=== PATIENT | male | born 1975 | race Hispanic/Latino ===

== ENCOUNTER 2024-08-08 08:30 | Inpatient (IN) | payer BC ==
[~2024-08-08] VITALS: Ht 170.2 cm; Wt 114.2 kg
[2024-08-08 09:27] LABS: BASOPHILS # (AUTO) 0.03 K/uL (0.00-0.20); BASOPHILS % (AUTO) 0.4 % (0.0-5.0); EOSINOPHILS # (AUTO) 0.24 K/uL (0.00-0.70); HEMATOCRIT 40.9 % (42-54); IMMATURE GRANULOCYTE ABSOLUTE 0.01 K/uL (0-1); LYMPHOCYTES # (AUTO) 2.6 K/uL (1.0-4.8); LYMPHOCYTES % (AUTO) 32.4 % (21.0-51.0); MEAN CORPUSCULAR HEMOGLOBIN 27.1 pg (27.0-33.0); MEAN CORPUSCULAR VOLUME 79.9 fL (79-99); MONOCYTES # (AUTO) 0.8 K/uL (0.1-1.0); MONOCYTES % (AUTO) 9.4 % (3.0-13.0); NEUTROPHILS # (AUTO) 4.4 K/uL (1.8-7.7); NEUTROPHILS % (AUTO) 54.7 % (40.0-77.0); PLATELET COUNT (AUTO) 291 K/uL (130-400); RED BLOOD CELL COUNT(AUTO) 5.12 MIL/uL (4.50-6.20); RED CELL DISTRIBUTION WIDTH 12.8 % (11.0-15.5); WHITE BLOOD COUNT (AUTO) 8.1 K/uL (4.8-10.8)
--- NOTE | 2024-08-08 09:31 | HMCIMG ---
CT HEAD/BRAIN W/O CONTRAST HISTORY: Headaches COMPARISON: None TECHNIQUE: Multiple sequential axial images of the head were obtained from the base of the skull through vertex. Patient was not given contrast through intravenous route. FINDINGS: The ventricles and extraventricular CSF spaces are nondilated for patient's age. There is no midline shift, mass effect or herniation. No acute intracranial bleed is seen. Visualized portion of the paranasal sinuses are grossly within normal limits. IMPRESSION: 1. No acute intracranial bleed is seen. CT was performed with one or more following dose reduction techniques: automated exposure control, adjustment of the mA and kv according to patient's size, or use of a iterative reconstruction technique.
[2024-08-08 09:35] LABS: POTASSIUM 3.6 mmol/L (3.5-5.1)
[2024-08-08] MEDS: LAbetaLOL 20MG SYG IV ONE (09:47)
[2024-08-08 09:49] LABS: INR 0.95 (0.85-1.15); PROTHROMBIN TIME 10.3 SEC (9.6-11.6)
[2024-08-08 09:51] LABS: PARTIAL THROMBOPLASTIN TIME 26.8 SEC (26.3-35.5)
--- NOTE | 2024-08-08 10:05 | EKG ---
[facility] [place] Test Date: 2024-08-08 Test Time: 09:51:18 Pat Name: NORA MONTELONGO Department: [facility] Room: 412 Gender: M [employer] Operator: opal : 1975 Requested By: ORLIN WESTBROOK Order Number: [id number] Reading MD: Martínez Diana Measurements Intervals [place] Rate: 76 P: 34 [place]: 174 QRS: -23 QRSD: 101 T: 125 QT: 391 QTc: 439 Interpretive Statements Sinus rhythm LVH with secondary repolarization abnormality Anterior ST elevation, probably due to LVH No previous ECG available for comparison Electronically Signed On 08-11-2024 13:09:05 [employer]NER [facility] by Martínez Diana Please click the below link to view image of tracing.
--- NOTE | 2024-08-08 11:49 | ERN ---
General Chief Complaint: Eye Problems Stated Complaint: RT EYE PROBLEM Time Seen by MD: 08:39 History of Present Illness Initial Comments 49-year-old male came in for blurry vision from his right eye. Patient states that he has not followed up with physician in a long time and does not know if he has any underlying medical problems. Upon arrival patient had a blood pressure of 225 systolic. Patient denies pain to his I but has noticed some blurry vision which has been going on for the past few days. Patient denies weakness in upper and lower extremities. Patient does state that since onset his vision has improved. Patient otherwise has no concerns. Allergies: Coded Allergies: No Known Allergies (Unverified Allergy, Unknown, 08/08/24) Past Medical History Past Medical History: No Pertinent History Past Surgical History: None Surgical History Other: BILATERAL LASIK EYE SX ROS Dictation Blurry vision Physical Exam Physical Exam Dictation Vital Signs reviewed General Appearance: Alert, oriented x 3, no acute distress, well developed, nourished. Head and Face: non-traumatic. Eyes: PERRL, pink conjunctivas, eyelid no trauma, anterior chamber with arcus senilis. Ears: Pinnas intact and no signs of trauma or erythema ear canals clear and no d ischarge TM no erythema Nose: No discharge, no bleeding. Oropharynx: Mouth normal, tongue pink, pharynx clear,no erythema, tonsils no exudates, no abscesses noted, mucous membrane moist Neck: Supple, non-tender, no thyromegaly, no masses, no JVD, no bruits Breast:Deferred Chest:No tenderness, no crepitus, no paradoxical movement, no retractions Lungs:Clear, well-ventilated, symmetric, no rales, no wheezing, no rhonchi, no stridor, good breath sounds bilaterally Heart: Regular rate, regular rhythm, no murmur, no gallops Vascular: no peripheral edema, Abdomen: Soft, positive bowel sounds, nondistended, no guarding, nontender, no rebound, no masses no hepatomegaly, no splenomegaly, no Paige's sign, no hernias. Rectal: Deferred Genital: Deferred Neurological: Normal speech, motor function intact, sensory function intact Musculoskeletal: Neck nontender, full range of motion, back nontender, full range of motion, Extremities: nontender, full range of motion Skin: Color pink, dry, no turgor, no rash, no lacerations, no abrasions, no contusions. Lymphatic: Deferred Results Laboratory and Microbiology Lab and Micro Result Laboratory Tests Test 08/08/24 09:01 White Blood Count 8.1 K/uL (4.8-10.8) Red Blood Count 5.12 MIL/uL (4.50-6.20) Hemoglobin 13.9 g/dL (14.0-18.0) L Hematocrit 40.9 % (42-54) L Mean Corpuscular Volume 79.9 fL (79-99) Mean Corpuscular Hemoglobin 27.1 pg (27.0-33.0) Mean Corpuscular Hemoglobin Concent 34.0 g/dL (32.0-36.0) Red Cell Distribution Width 12.8 % (11.0-15.5) Platelet Count 291 K/uL (130-400) Mean Platelet Volume 10.8 fL (7.5-10.5) H Immature Granulocyte % (Auto) 0.1 % (0-1) Neutrophils (%) (Auto) 54.7 % (40.0-77.0) Lymphocytes (%) (Auto) 32.4 % (21.0-51.0) Monocytes (%) (Auto) 9.4 % (3.0-13.0) Eosinophils (%) (Auto) 3.0 % (0.0-8.0) Basophils (%) (Auto) 0.4 % (0.0-5.0) Neutrophils # (Auto) 4.4 K/uL (1.8-7.7) Lymphocytes # (Auto) 2.6 K/uL (1.0-4.8) Monocytes # (Auto) 0.8 K/uL (0.1-1.0) Eosinophils # (Auto) 0.24 K/uL (0.00-0.70) Basophils # (Auto) 0.03 K/uL (0.00-0.20) Absolute Immature Granulocyte (auto 0.01 K/uL (0-1) Nucleated Red Blood Cells 0.0 % (0.0-0.19) Prothrombin Time 10.3 SEC (9.6-11.6) Prothromb Time International Ratio 0.95 (0.85-1.15) Activated Partial Thromboplast Time 26.8 SEC (26.3-35.5) Sodium Level 135 mmol/L (136-145) L Potassium Level 3.6 mmol/L (3.5-5.1) Chloride Level 99 mmol/L (101-111) L Carbon Dioxide Level 30 mmol/L (21-32) Blood Urea Nitrogen 14 mg/dL (7-18) Creatinine 1.0 mg/dL (0.5-1.3) Glomerular Filtration Rate Calc 91 mL/min (>90) Random Glucose 200 mg/dL (70-105) H Total Calcium 8.7 mg/dL (8.5-10.1) Troponin I High Sensitivity 20 ng/L (4-75) MDM MDM: Differential diagnosis: Rationale: Tests considered and ordered secondary to shared decision making include: Previous outside records reviewed: Old ER visits. Risk of complication and/or morbidity or mortality of patient management: None Medications-Per medication reconciliation Need for hospitalization: Patient does meet criteria for hospitalization. Need for emergency major/minor surgery: No There are no social concerns with this patient. Prescription drug management Prescriptions will include symptomatic care Patient's prior external medical records from other ER visits were reviewed by me as indicated. Prior testing and results from previous visits were reviewed. Prior tests were taken into account with medical decision making and resource utilization, independent historian/historians were used to obtain complete medical history. I independently interpreted the test that were performed, results were reviewed by me and considered findings on radiology if ordered. Medical management and examination interpretation discussions were had by me with other qualified healthcare professionals as indicated for the patient's care. After treatment of hypertensive urgency patient can follow up with [facility] ophthalmology clinic. ED Course Orders Procedure Category Date Status Time Cbc With Differential LAB 08/08/24 Complete 08:52 Basic Metabolic Panel LAB 08/08/24 Complete 08:52 Pt And Ptt LAB 08/08/24 Complete 08:52 Ct Head/Brain W/O CT 08/08/24 Resulted Contrast 08:52 Labetalol 20mg Syg PHA 08/08/24 Complete (Trandate 20mg Syg) 10:00 12 Lead Ekg Tracing- EKG 08/08/24 Complete Technical 09:40 Troponin I High LAB 08/08/24 Complete Sensitivity 09:40 Current Medications Medications (Trade) Dose Ordered Sig/Joseph Route PRN Reason Start Time Stop Time Status Last Admin Dose Admin Labetalol HCl (TRANdate 20MG SYG) 10 mg ONCE ONCE IV 08/08/24 10:00 08/08/24 10:01 DC 08/08/24 09:47 Vital Signs Date Time Temp Pulse Resp B/P (MAP) Pulse Ox O2 Delivery O2 Flow Rate FiO2 08/08/24 11:13 97.7 73 18 169/95 99 Room Air* 0 21 08/08/24 10:34 97.7 74 18 176/99 99 Room Air* 0 08/08/24 09:47 218/119 08/08/24 09:47 72 18 213/119 98 Room Air* 0 08/08/24 08:36 97.7 74 20 227/119 99 Room Air DX & DISP Disposition: Inpatient Decision to Admit Date: Aug 08, 2024 Decision to Admit Time: 11:49 Departure Impression: Primary Impression: Hypertensive urgency Condition: Stable Referrals: SELF,REFERRAL (PCP) ORLIN WESTBROOK MD Aug 08, 2024 11:49
--- NOTE | 2024-08-08 12:18 | HP ---
[facility] PH[facility] Date of Service: Aug 08, 2024 Time of Service: 12:18 HISTORY OF PRESENT ILLNESS: Date of Service: 08/08/2024 49-year-old male with no significant past medical history who presented to the hospital secondary to elevated blood pressure in the right eye blurry vision. Patient states for the past three days he has noted blurry vision in the right eye. He has issues with peripheral vision but is able to somewhat see centrally. He does not have any problems with the left eye. Denied any eye pain, swelling, pain with movement of the high. He denied any upper or lower extremity weakness, paresthesias, falls, syncopal episode. Patient does not see a primary care provider and does not take any medications at home. Additionally he has not had any regular lab work done. He does not check his blood pressure at home. He states otherwise he is very active and denies any chest pain at rest or with exertion. Denied any fever, chills, shortness of breath, abdominal pain, nausea, vomiting. Labs in the ED were notable for white count of 8.1, hemoglobin was 13.9, platelet count was 291k, sodium was 135, potassium was 3.6, creatinine was 1.0, blood glucose head which was negative. On presentation to the ED patient's blood pressure was noted to be 227/119. The patient received IV labetalol 10 mg which decreased his blood pressure to 176/99. When seen at bedside patient's systolic blood pressure was noted to be in the 140's/ and diastolic pressure was noted to be under 100s. Patient currently denied any chest pain when seen at bedside. CT Head was negative for any acute findings in the ED The provider spoke to [facility] with ophthalmology regarding right eye blurry vision. [employer] Straightener recommended outpatient follow up once blood pressure is optimized. REVIEW OF SYSTEMS CONSTITUTIONAL: Denies fevers, chills, or night sweats. No unintentional weight loss reported. NEUROLOGICAL: Denies headache, amaurosis fugax, motor weakness, sensory deficit, vertigo/spinning sensation, gait abnormalities, or tremors. EYE : Positive for blurry vision in the right eye ENT: No hearing loss, otalgia, otorrhea, rhinitis, rhinorrhea, hoarseness, or sore throat. CARDIOVASCULAR: Denies any exertional angina, dyspnea on exertion, orthopnea, paroxysmal nocturnal dyspnea, palpitations, life-threatening arrhythmias, claudication. PULMONARY: Denies any shortness of breath, cough, phlegm/sputum, hemoptysis, pleuritic chest pain. SLEEP: Denies morning headaches, daytime somnolence or napping. Denies difficulty falling asleep, staying asleep, waking from sleep. Denies knowledge of snoring. GASTROINTESTINAL: Denies any type of dysphagia to either liquids or solids. Denies nausea, vomiting, pyrosis, early satiety, abdominal pain, diarrhea, constipation, or changes in stool consistency or caliber. Denies coffee-ground emesis, hematemesis, hematochezia, or melanotic stools. GENITOURINARY: Denies frequency, urgency, nocturia, hematuria or incontinence (Storage/Irritative symptoms.) Low urinary stream, straining to void, urinary intermittency or hesitancy, splitting of the voiding stream, terminal dribbling. ENDOCRINOLOGIC: Denies polyuria, polydipsia, polyphagia or heat/cold intolerances. HEMATOLOGIC: Denies thrombophilia/previous clots, or coagulopathy/bleeding disorders. ONCOLOGIC: Denies personal history of malignancy. DERMATOLOGIC: Denies rashes or pruritus. PSYCHIATRIC: Denies any suicidal or homicidal ideation. Denies hallucinations. PAST MEDICAL HISTORY: No Significant past medical history PAST SURGICAL HISTORY: Denied any surgical history PAST SOCIAL HISTORY: Denied smoking. Drinks alcohol occasionally. Denied any drug use FAMILY HISTORY: Denied any pertinent family history Coded Allergies: No Known Allergies (Unverified Allergy, Unknown, 08/08/24) PHYSICAL EXAM GENERAL APPEARANCE: The patient is awake, alert, and oriented, in no acute c ardiopulmonary distress. NEUROLOGICAL: Cranial nerves II-XII grossly intact. Motor is 5/5 in bilateral upper and lower extremities proximal to distal. No sensory deficits. HEENT: Face is symmetric. Pupils are equal and reactive. Extraocular movements are intact. He has conjunctival redness in the right eye. Eye movement is intact. Visual field is intact in the left eye. Patient has a loss of peripheral vision in the right eye. He does see somewhat from the central vision from the right eye.. Nursing performed visual acuity. His visual acuity in the left eye was 20/40. Was not able to he was not able to visualize well with the right eye. NECK: Supple. No JVD. No thyromegaly. No submental, submandibular, pre- /postauricular, occipital or supraclavicular lymphadenopathy. CHEST: Normal chest expansion. No Telemetry. LUNGS: Absence of any rales, rhonchi or any wheezing. CARDIOVASCULAR: Regular. S1 and S2 normal. No appreciable rubs, murmurs or gallops. ABDOMEN: Soft, nontender, and nondistended. There is no rebound, voluntary guarding, or rigidity. : Deferred. No [place]. EXTREMITIES: Non-edematous and not cyanotic. No clubbing. Good capillary refill. SKIN: No skin breakdown. Vital Sign (Last 24 Hours) 08/08/24 12:12 Temp 97.7 Pulse 73 Resp 18 B/P (MAP) 148/100 Pulse Ox 99 O2 Delivery Room Air* O2 Flow Rate 0 FiO2 21 LABS: Laboratory: Test 08/08/24 09:01 Range/Units White Blood Count 8.1 4.8-10.8 K/uL Red Blood Count 5.12 4.50-6.20 MIL/uL Hemoglobin 13.9 L 14.0-18.0 g/dL Hematocrit 40.9 L 42-54 % Mean Corpuscular Volume 79.9 79-99 fL Mean Corpuscular Hemoglobin 27.1 27.0-33.0 pg Mean Corpuscular Hemoglobin Concent 34.0 32.0-36.0 g/dL Red Cell Distribution Width 12.8 11.0-15.5 % Platelet Count 291 130-400 K/uL Mean Platelet Volume 10.8 H 7.5-10.5 fL Immature Granulocyte % (Auto) 0.1 0-1 % Neutrophils (%) (Auto) 54.7 40.0-77.0 % Lymphocytes (%) (Auto) 32.4 21.0-51.0 % Monocytes (%) (Auto) 9.4 3.0-13.0 % Eosinophils (%) (Auto) 3.0 0.0-8.0 % Basophils (%) (Auto) 0.4 0.0-5.0 % Neutrophils # (Auto) 4.4 1.8-7.7 K/uL Lymphocytes # (Auto) 2.6 1.0-4.8 K/uL Monocytes # (Auto) 0.8 0.1-1.0 K/uL Eosinophils # (Auto) 0.24 0.00-0.70 K/uL Basophils # (Auto) 0.03 0.00-0.20 K/uL Absolute Immature Granulocyte (auto 0.01 0-1 K/uL Nucleated Red Blood Cells 0.0 0.0-0.19 % Prothrombin Time 10.3 9.6-11.6 SEC Prothromb Time International Ratio 0.95 0.85-1.15 Activated Partial Thromboplast Time 26.8 26.3-35.5 SEC Sodium Level 135 L 136-145 mmol/L Potassium Level 3.6 3.5-5.1 mmol/L Chloride Level 99 L 101-111 mmol/L Carbon Dioxide Level 30 21-32 mmol/L Blood Urea Nitrogen 14 7-18 mg/dL Creatinine 1.0 0.5-1.3 mg/dL Glomerular Filtration Rate Calc 91 >90 mL/min Random Glucose 200 H 70-105 mg/dL Total Calcium 8.7 8.5-10.1 mg/dL Troponin I High Sensitivity 20 4-75 ng/L DIAGNOSTICS / RADIOLOGY: Reviewed ASSESSMENT: Hypertensive urgency POA Right eye blurry vision Suspected diabetes mellitus type 2 Obesity BMI 40.1 PLAN: - patient to be admitted to PCCU -in reference to hypertensive urgency. Patient's blood pressure has improved in the systolic 140s. We will start patient on amlodipine and titrate up medication as tolerated. We will closely monitor blood pressure for now. Patient is currently asymptomatic. We will also trend troponins q.6 hours and obtain an echocardiogram. Patient would require follow up with the primary care provider for close monitoring -in reference to right eye blurry vision. [employer]ener recommended outpatient follow up. I also personally spoke with Dr Parham with [facility] who recommended optimization of blood pressure and follow up as outpt with eye once discharged from the hospital. -check TSH, A1c, procalcitonin, CRP -further orders per hospitalization course. Advanced Care Planning Which of the following were discussed: Hospice care: Yes __ No _x_ Therapeutic options: Yes __ No __ Advance directives: Yes __ No __ Other discussions: Pt is full code Discussed with who?: Patient (Patient, family or surrogates) Voluntary nature of this service was explained to the patient? Yes _x_ No __ Amount of time spent: 20 minutes ALVIN Nicholson MD MD Aug 08, 2024 12:18
[2024-08-08] MEDS ORDERED: acetaMINOPHEN 500 MG TABLET PO PRN (12:30)
[2024-08-08] MEDS: amLODIPine 5 MG TAB PO ONE (12:37)
[2024-08-08 13:20] LABS: HEMOGLOBIN A1C 11.1 % (4.0-6.0)
[2024-08-08] MEDS: INSULIN humuLIN R 100 UNIT/ML 3ML SQ SCH (17:04)
[2024-08-08 18:32] LABS: APPEARANCE,URINE CLEAR (CLEAR); BILIRUBIN,URINE NEGATIVE (NEGATIVE); COLOR,URINE LIGHT-YELLOW (YELLOW); GLUCOSE, URINE (UA) >=1000 mg/dL (NEGATIVE); KETONES,URINE NEGATIVE (NEGATIVE); LEUKOCYTE ESTERASE ,URINE NEGATIVE Leu/uL (NEGATIVE); NITRATE,URINE NEGATIVE (NEGATIVE); PH,URINE 5.5 (5.0-8.0); PROTEIN,URINE 20 mg/dL (NEGATIVE); UROBILINOGEN,URINE 0.2 mg/dL (0.2-1.0)
[2024-08-08 18:36] LABS: ADD UA MICROSCOPIC YES
[2024-08-08 18:37] LABS: MUCUS,URINE RARE LPF (None Seen); SQUAMOUS EPITHELIAL CELL,UR RARE /HPF (0-2)
[2024-08-08 19:00] LABS: AMPHET/METH SCREEN,URINE NEGATIVE (NEGATIVE); BARBITURATE SCREEN, URINE NEGATIVE (NEGATIVE); BENZODIAZEPINES SCREEN,URINE NEGATIVE (NEGATIVE); CANNABINOID SCREEN,URINE NEGATIVE (NEGATIVE); COCAINE SCREEN,URINE NEGATIVE (NEGATIVE); OPIATE SCREEN,URINE NEGATIVE (NEGATIVE); PHENCYCLIDINE SCREEN,URINE NEGATIVE (NEGATIVE)
[2024-08-08] MEDS: FAMOTIDINE 20MG VIAL IV SCH (21:00)
[2024-08-08] MEDS: LAbetaLOL 20MG SYG IV PRN (21:01)
[2024-08-08] MEDS: LoSARTan 50 MG TABLET PO SCH (21:47)
[2024-08-08 22:57] VITALS: BP 158/98; PULSE 76; RESP 22; TEMP 98.5
[2024-08-08 23:30] VITALS: O2SAT 99
[2024-08-09] VITALS (9 sets, daily range): BP systolic 121–174; BP diastolic 76–99; PULSE 73–76; RESP 18–22; TEMP 97.7–98.5; O2SAT 99
[2024-08-09] MEDS: hydrALAZine 20MG/ML VIAL IV ONE (05:31)
[2024-08-09 06:16] LABS: BASOPHILS # (AUTO) 0.04 K/uL (0.00-0.20); BASOPHILS % (AUTO) 0.5 % (0.0-5.0); EOSINOPHILS # (AUTO) 0.16 K/uL (0.00-0.70); EOSINOPHILS % (AUTO) 1.9 % (0.0-8.0); HEMATOCRIT 40.4 % (42-54); IMMATURE GRANULOCYTE ABSOLUTE 0.02 K/uL (0-1); LYMPHOCYTES # (AUTO) 2.3 K/uL (1.0-4.8); MEAN CORPUSCULAR HEMOGLOBIN 26.9 pg (27.0-33.0); MEAN CORPUSCULAR HGB CONC 33.2 g/dL (32.0-36.0); MONOCYTES # (AUTO) 0.9 K/uL (0.1-1.0); MONOCYTES % (AUTO) 10.4 % (3.0-13.0); NEUTROPHILS # (AUTO) 5.2 K/uL (1.8-7.7); PLATELET COUNT (AUTO) 287 K/uL (130-400); RED BLOOD CELL COUNT(AUTO) 4.99 MIL/uL (4.50-6.20); RED CELL DISTRIBUTION WIDTH 12.9 % (11.0-15.5); WHITE BLOOD COUNT (AUTO) 8.6 K/uL (4.8-10.8)
[2024-08-09 06:28] LABS: CREATININE 1.1 mg/dL (0.5-1.3); POTASSIUM 3.7 mmol/L (3.5-5.1)
[2024-08-09] MEDS ORDERED: amLODIPine 5 MG TAB PO SCH (09:00)
[2024-08-09] MEDS: amLODIPine 5 MG TAB PO SCH (09:27)
--- NOTE | 2024-08-09 13:09 | PN ---
[facility] PROGRESS NOTE Date of Service: Aug 09, 2024 Time of Service: 13:03 SUBJECTIVE: Follow up visit for a 49-year-old male admitted to the hospital for uncontrolled blood pressure, right eye blurry vision. Patient initiated on p.o. Norvasc, p.o. losartan, SBP improving ranging in the 140s 150s. Patient also a type 2 diabetic not currently on any DM medications, A1c is 11.1%. Patient continues to experience for right eye irritation with some hazy vision. He reports itchiness and a.m. matter to the right eye. REVIEW OF SYSTEMS CONSTITUTIONAL: Denies fevers, chills, or night sweats. No unintentional weight loss reported. NEUROLOGICAL: Denies headache, amaurosis fugax, motor weakness, sensory deficit, vertigo/spinning sensation, gait abnormalities, or tremors. EYE : Positive for blurry vision in the right eye ENT: As mentioned above CARDIOVASCULAR: Denies any exertional angina, dyspnea on exertion, orthopnea, paroxysmal nocturnal dyspnea, palpitations, life-threatening arrhythmias, claudication. PULMONARY: Denies any shortness of breath, cough, phlegm/sputum, hemoptysis, pleuritic chest pain. SLEEP: Denies morning headaches, daytime somnolence or napping. Denies difficulty falling asleep, staying asleep, waking from sleep. Denies knowledge of snoring. GASTROINTESTINAL: Denies any type of dysphagia to either liquids or solids. Denies nausea, vomiting, pyrosis, early satiety, abdominal pain, diarrhea, constipation, or changes in stool consistency or caliber. Denies coffee-ground emesis, hematemesis, hematochezia, or melanotic stools. GENITOURINARY: Denies frequency, urgency, nocturia, hematuria or incontinence (Storage/Irritative symptoms.) Low urinary stream, straining to void, urinary intermittency or hesitancy, splitting of the voiding stream, terminal dribbling. ENDOCRINOLOGIC: Denies polyuria, polydipsia, polyphagia or heat/cold intolerances. HEMATOLOGIC: Denies thrombophilia/previous clots, or coagulopathy/bleeding disorders. ONCOLOGIC: Denies personal history of malignancy. DERMATOLOGIC: Denies rashes or pruritus. PSYCHIATRIC: Denies any suicidal or homicidal ideation. Denies hallucinations. PHYSICAL EXAM GENERAL APPEARANCE: The patient is awake, alert, and oriented, in no acute cardiopulmonary distress. NEUROLOGICAL: Cranial nerves II-XII grossly intact. Motor is 5/5 in bilateral upper and lower extremities proximal to distal. No sensory deficits. HEENT: Face is symmetric. Pupils are equal and reactive. Extraocular movements are intact. He has global conjunctival redness in the right eye. Eye movement is intact. Visual field is intact in the left eye. He does state that his right eye central and peripheral vision is intact however is hazy NECK: Supple. No JVD. No thyromegaly. No submental, submandibular, pre- /postauricular, occipital or supraclavicular lymphadenopathy. CHEST: Normal chest expansion. No Telemetry. LUNGS: Absence of any rales, rhonchi or any wheezing. CARDIOVASCULAR: Regular. S1 and S2 normal. No appreciable rubs, murmurs or gallops. ABDOMEN: Soft, nontender, and nondistended. There is no rebound, voluntary guarding, or rigidity. : Deferred. No Fenton. EXTREMITIES: Non-edematous and not cyanotic. No clubbing. Good capillary refill. SKIN: No skin breakdown. Vital Signs (last 8hr) Date Time Temp Pulse Resp B/P (MAP) Pulse Ox O2 Delivery O2 Flow Rate FiO2 08/09/24 12:00 97.9 73 18 148/96 96 08/09/24 08:00 98.2 75 18 147/93 99 Room Air 08/09/24 06:00 98.2 75 20 144/99 98 Room Air 08/09/24 05:26 174/96 LABS: Laboratory: Test 08/09/24 10:55 08/09/24 05:53 08/08/24 18:18 08/08/24 18:00 Range/Units Whole Blood Glucose 192 H 70-110 MG/DL White Blood Count 8.6 4.8-10.8 K/uL Red Blood Count 4.99 4.50-6.20 MIL/uL Hemoglobin 13.4 L 14.0-18.0 g/dL Hematocrit 40.4 L 42-54 % Mean Corpuscular Volume 81.0 79-99 fL Mean Corpuscular Hemoglobin 26.9 L 27.0-33.0 pg Mean Corpuscular Hemoglobin Concent 33.2 32.0-36.0 g/dL Red Cell Distribution Width 12.9 11.0-15.5 % Platelet Count 287 130-400 K/uL Mean Platelet Volume 10.8 H 7.5-10.5 fL Immature Granulocyte % (Auto) 0.2 0-1 % Neutrophils (%) (Auto) 60.0 40.0-77.0 % Lymphocytes (%) (Auto) 27.0 21.0-51.0 % Monocytes (%) (Auto) 10.4 3.0-13.0 % Eosinophils (%) (Auto) 1.9 0.0-8.0 % Basophils (%) (Auto) 0.5 0.0-5.0 % Neutrophils # (Auto) 5.2 1.8-7.7 K/uL Lymphocytes # (Auto) 2.3 1.0-4.8 K/uL Monocytes # (Auto) 0.9 0.1-1.0 K/uL Eosinophils # (Auto) 0.16 0.00-0.70 K/uL Basophils # (Auto) 0.04 0.00-0.20 K/uL Absolute Immature Granulocyte (auto 0.02 0-1 K/uL Nucleated Red Blood Cells 0.0 0.0-0.19 % Sodium Level 136 136-145 mmol/L Potassium Level 3.7 3.5-5.1 mmol/L Chloride Level 100 L 101-111 mmol/L Carbon Dioxide Level 26 21-32 mmol/L Blood Urea Nitrogen 12 7-18 mg/dL Creatinine 1.1 0.5-1.3 mg/dL Glomerular Filtration Rate Calc 81 >90 mL/min Random Glucose 176 H 70-105 mg/dL Total Calcium 8.7 8.5-10.1 mg/dL Troponin I High Sensitivity 20 4-75 ng/L Urine Color LIGHT-YELLOW YELLOW Urine Appearance CLEAR CLEAR Urine pH 5.5 5.0-8.0 Urine Specific Leopold 1.019 1.001-1.031 Urine Protein 20 H NEGATIVE mg/dL Urine Glucose (UA) >=1000 H NEGATIVE mg/dL Urine Ketones NEGATIVE NEGATIVE mg/dL Urine Occult Blood +- (TRACE) H NEGATIVE Urine Nitrate NEGATIVE NEGATIVE Urine Bilirubin NEGATIVE NEGATIVE mg/dL Urine Urobilinogen 0.2 0.2-1.0 mg/dL Urine Leukocyte Esterase NEGATIVE NEGATIVE Dago/uL Urine RBC 2-5 H 0-1 /HPF Urine WBC 2-5 H 0-1 /HPF Urine Squamous Epithelial Cells RARE 0-2 /HPF Urine Bacteria None None Seen /HPF Urine Hyaline Casts 6-10 H 0-1 /LPF /LPF Urine Opiates Screen NEGATIVE NEGATIVE Urine Barbiturates Screen NEGATIVE NEGATIVE Urine Phencyclidine Screen NEGATIVE NEGATIVE Urine Amphetamines Screen NEGATIVE NEGATIVE Urine Benzodiazepines Screen NEGATIVE NEGATIVE Urine Cocaine Screen NEGATIVE NEGATIVE Urine Marijuana (THC) Screen NEGATIVE NEGATIVE Test 08/08/24 09:01 Range/Units Prothrombin Time 10.3 9.6-11.6 SEC Prothromb Time International Ratio 0.95 0.85-1.15 Activated Partial Thromboplast Time 26.8 26.3-35.5 SEC Hemoglobin A1c 11.1 H 4.0-6.0 % Estimated Average Glucose (eAG) 272 H 70-126 mg/dL C-Reactive Protein, Quantitative 3.10 H 0.5-3.0 mg/L Procalcitonin < 0.05 L 0.05-0.5 ng/mL Thyroid Stimulating Hormone (TSH) 2.00 0.36-3.74 uIU/mL Current Medications Medications (Trade) Dose Ordered Sig/Joseph Route PRN Reason Start Time Stop Time Status Last Admin Dose Admin Acetaminophen (TYLenol 500MG TAB) 500 mg Q6H PRN PO MILD PAIN (1-3) 08/08/24 12:30 09/07/24 12:29 Amlodipine Besylate (NorvASC 5MG TAB) 5 mg DAILY PO 08/09/24 09:00 08/08/24 19:47 DC Amlodipine Besylate (NorvASC 5MG TAB) 10 mg DAILY PO 08/09/24 09:00 09/08/24 08:59 08/09/24 09:27 10 MG Famotidine (Pepcid 20mg Vial) 20 mg BID IV 08/08/24 21:00 09/07/24 20:59 08/09/24 09:28 20 MG Insulin Human Regular (humuLIN R 100 UNIT/ML 3ML) INSULIN SLIDING SCAL... ACHS SQ 08/08/24 16:30 09/07/24 16:29 08/09/24 12:46 2 UNIT Labetalol HCl (TRANdate 20MG SYG) 10 mg Q6H PRN IV for SBP > 180 08/08/24 12:30 09/07/24 12:29 08/08/24 21:01 10 MG Losartan Potassium (CozAAR 50 mg TAB) 50 mg HS PO 08/08/24 21:30 09/07/24 21:29 08/08/24 21:47 50 MG DIAGNOSTICS / RADIOLOGY: [ ] ASSESSMENT: Hypertensive urgency POA Right eye blurry vision Right eye conjunctivitis Uncontrolled diabetes mellitus type 2 Obesity BMI 40.1 PLAN: - continue admission to [facility] -in reference to hypertensive urgency. Patient's blood pressure has improved systolic 140s, 150s. Continue on amlodipine and losartan. We will closely monitor blood pressure for now. Patient is currently asymptomatic. We will obtain an echocardiogram. Patient would require follow up with the primary care provider for close monitoring -in reference to right eye blurry vision. Bacteriology Professor recommended outpatient follow up. Start TobraDex ophthalmic suspension one drop q.4 hours to right eye. -reference to type 2 diabetes, we will initiate patient on metformin 1000 mg p.o. b.i.d., and glipizide 5 mg with breakfast. Continues to monitor blood sugars a.c. and HS. SSI coverage. Hypoglycemic precautions per protocol. A1c is at 11.1%. - follow-up a.m. labs -further orders per hospitalization course. - likely DC home in a.m. BRANDON HERNANDEZ Aug 09, 2024 13:09
[2024-08-09] MEDS: TobRAMYCin/DEXAmethASONE OPTH SUSP 2.5 ML BOT OD SCH (13:30)
[2024-08-09] MEDS: metFORmin HCL 500 MG TAB.SR.24H PO SCH (17:00)
--- NOTE | 2024-08-09 18:06 | HMCSR ---
APPROVED REPORT EXAM: Two-dimensional and M-mode echocardiogram with Doppler and color Doppler. Study Details: HTN INDICATION ICD: uncontrolled hypertension 2D Dimensions RVDd3.9 cmLVEF(%)62.3 (>50%)LVED Vol(simp.)144.0 mL IVSd1.1 (0.7-1.1cm)FS(%)34 %LVES Vol(simp.)49.6 mL LVDd5.3 (3.8-5.6cm)LA (2D)4.8 (1.6-4.0cm)LVEF(%, simp.)66 % PWd1.1 (0.7-1.1cm)Ao Root(2D)3.5 (2.0-3.7cm)LA ESV INDEX (4CH)23.20 mL/m2 IVSs1.4 cmLVOT diam2.0 (1.8-2.4cm)LA ESV INDEX (2CH)22.80 mL/m2 LVDs3.5 (2.5-4.0cm)LA ESV INDEX (BP)23.90 mL/m2 PWs1.4 cm Deformation Strain Apical 418.0 % Apical 215.0 % Apical 317.0 % Global Jttazf10.0 % M-Mode Dimensions EPSS1.4 cm LA (MM)4.8 (1.6-4.0cm) Ao Root(MM)3.7 (2.0-3.7cm) Aortic Valve AoV VTI0.3 mAo Mean GR4.0 mmHgLVOT VTI0.23 m SARAH (VMAX)2.4 cm2AVA (VTI) 2.4 cm2 Mitral Valve MV E Vmax74.7 cm/sDECEL Ftse966 ms MV A Jjui159.7 cm/sP 1/2 T78 ms E/A ratio0.7MVA (PHT)2.8 cm2 TDI E/E' Izezvk33.6E/E' Aujpoix03.2 Medial E' Peak V3.30 cm/sLateral E' Peak V4.10 cm/s Pulmonary Valve PV VTI0.22 mPV Mean GR3 mmHg Left Ventricle The left ventricle is normal size. There is normal left ventricular wall thickness. LVEF is 60-65%. Stage I diastolic dysfunction. Right Ventricle The right ventricle is normal size. The right ventricular systolic function is normal. Atria The left atrium is mildly dilated. The right atrium size is normal. Aortic Valve The aortic valve is normal in structure. Aortic valve is trileaflet. Trivial aortic regurgitation. Th ere is no aortic valvular stenosis. Mitral Valve The mitral valve is normal in structure. There is no evidence of significant mitral regurgitation. Th ere is no mitral valve stenosis. Tricuspid Valve The tricuspid valve is normal in structure. There is no tricuspid valve regurgitation noted. Pulmonic Valve The pulmonary valve is normal in structure. There is no pulmonic valvular regurgitation. Great Vessels The aortic root is normal in size. The ascending aorta is normal in size. The IVC is normal in size a nd collapses >50% with inspiration. Pericardium No pericardial effusion. Conclusion The left ventricle is normal size. LVEF is 60-65%. Stage I diastolic dysfunction. The right ventricle is normal size. The right ventricular systolic function is normal. The left atrium is mildly dilated. The right atrium size is normal. No valvular pathology. No pericardial effusion.
[2024-08-10] VITALS (7 sets, daily range): BP systolic 125–151; BP diastolic 64–100; PULSE 68–72; RESP 18–19; TEMP 97.7–98; O2SAT 99
[2024-08-10 04:55] LABS: POTASSIUM 3.6 mmol/L (3.5-5.1)
[2024-08-10] MEDS: glipiZIDE 5MG TABLET PO SCH (06:49)
[2024-08-10] MEDS ORDERED: nifeDIPine ER 30 MG TAB PO SCH (14:30)
--- NOTE | 2024-08-10 14:40 | PN ---
[facility] PROGRESS NOTE Date of Service: Aug 10, 2024 Time of Service: 14:29 SUBJECTIVE: 08/09 Follow up visit for a 49-year-old male admitted to the hospital for uncontrolled blood pressure, right eye blurry vision. Patient initiated on p.o. Norvasc, p.o. losartan, SBP improving ranging in the 140s 150s. Patient also a type 2 diabetic not currently on any DM medications, A1c is 11.1%. Patient continues to experience for right eye irritation with some hazy vision. He reports itchiness and a.m. matter to the right eye. 08/10 Pt seen at bedside, no acute events overnight. He remains hypertensive, will increase losartan to 50mg BID, start nifedipine 30mg BID and follow up tomorrow. If BP better controlled, will be good candidate for discharge. Pt was started on metformin and glipizide, however this is contraindicated in inpatient as PO diabetes medications are associate with increased incidence of hypoglycemic events, will discontinue at this time and continue with sliding scale. Remainder of his labs and vitals are relatively unremarkable. REVIEW OF SYSTEMS 12 point ROS negative unless noted in HPI PHYSICAL EXAM GENERAL APPEARANCE: The patient is awake, alert, and oriented, in no acute cardiopulmonary distress. NEUROLOGICAL: Cranial nerves II-XII grossly intact. Motor is 5/5 in bilateral upper and lower extremities proximal to distal. No sensory deficits. HEENT: Face is symmetric. Pupils are equal and reactive. Extraocular movements are intact. He has global conjunctival redness in the right eye. Eye movement is intact. Visual field is intact in the left eye. He does state that his right eye central and peripheral vision is intact however is hazy NECK: Supple. No JVD. No thyromegaly. No submental, submandibular, pre- /postauricular, occipital or supraclavicular lymphadenopathy. CHEST: Normal chest expansion. No Telemetry. LUNGS: Absence of any rales, rhonchi or any wheezing. CARDIOVASCULAR: Regular. S1 and S2 normal. No appreciable rubs, murmurs or gallops. ABDOMEN: Soft, nontender, and nondistended. There is no rebound, voluntary guarding, or rigidity. : Deferred. No Fenton. EXTREMITIES: Non-edematous and not cyanotic. No clubbing. Good capillary refill. SKIN: No skin breakdown. Vital Signs (last 8hr) Date Time Temp Pulse Resp B/P (MAP) Pulse Ox O2 Delivery O2 Flow Rate FiO2 08/10/24 12:00 97.9 68 18 151/94 94 08/10/24 08:00 98.1 68 18 149/100 96 LABS: Laboratory: Test 08/10/24 11:14 08/10/24 04:39 08/09/24 05:53 08/08/24 18:18 Range/Units Whole Blood Glucose 119 H 70-110 MG/DL Sodium Level 137 136-145 mmol/L Potassium Level 3.6 3.5-5.1 mmol/L Chloride Level 102 101-111 mmol/L Carbon Dioxide Level 27 21-32 mmol/L Blood Urea Nitrogen 12 7-18 mg/dL Creatinine 1.0 0.5-1.3 mg/dL Glomerular Filtration Rate Calc 91 >90 mL/min Random Glucose 162 H 70-105 mg/dL Total Calcium 8.7 8.5-10.1 mg/dL White Blood Count 8.6 4.8-10.8 K/uL Red Blood Count 4.99 4.50-6.20 MIL/uL Hemoglobin 13.4 L 14.0-18.0 g/dL Hematocrit 40.4 L 42-54 % Mean Corpuscular Volume 81.0 79-99 fL Mean Corpuscular Hemoglobin 26.9 L 27.0-33.0 pg Mean Corpuscular Hemoglobin Concent 33.2 32.0-36.0 g/dL Red Cell Distribution Width 12.9 11.0-15.5 % Platelet Count 287 130-400 K/uL Mean Platelet Volume 10.8 H 7.5-10.5 fL Immature Granulocyte % (Auto) 0.2 0-1 % Neutrophils (%) (Auto) 60.0 40.0-77.0 % Lymphocytes (%) (Auto) 27.0 21.0-51.0 % Monocytes (%) (Auto) 10.4 3.0-13.0 % Eosinophils (%) (Auto) 1.9 0.0-8.0 % Basophils (%) (Auto) 0.5 0.0-5.0 % Neutrophils # (Auto) 5.2 1.8-7.7 K/uL Lymphocytes # (Auto) 2.3 1.0-4.8 K/uL Monocytes # (Auto) 0.9 0.1-1.0 K/uL Eosinophils # (Auto) 0.16 0.00-0.70 K/uL Basophils # (Auto) 0.04 0.00-0.20 K/uL Absolute Immature Granulocyte (auto 0.02 0-1 K/uL Nucleated Red Blood Cells 0.0 0.0-0.19 % Troponin I High Sensitivity 20 4-75 ng/L Test 08/08/24 18:00 Range/Units Urine Color LIGHT-YELLOW YELLOW Urine Appearance CLEAR CLEAR Urine pH 5.5 5.0-8.0 Urine Specific Wells 1.019 1.001-1.031 Urine Protein 20 H NEGATIVE mg/dL Urine Glucose (UA) >=1000 H NEGATIVE mg/dL Urine Ketones NEGATIVE NEGATIVE mg/dL Urine Occult Blood +- (TRACE) H NEGATIVE Urine Nitrate NEGATIVE NEGATIVE Urine Bilirubin NEGATIVE NEGATIVE mg/dL Urine Urobilinogen 0.2 0.2-1.0 mg/dL Urine Leukocyte Esterase NEGATIVE NEGATIVE Dago/uL Urine RBC 2-5 H 0-1 /HPF Urine WBC 2-5 H 0-1 /HPF Urine Squamous Epithelial Cells RARE 0-2 /HPF Urine Bacteria None None Seen /HPF Urine Hyaline Casts 6-10 H 0-1 /LPF /LPF Urine Opiates Screen NEGATIVE NEGATIVE Urine Barbiturates Screen NEGATIVE NEGATIVE Urine Phencyclidine Screen NEGATIVE NEGATIVE Urine Amphetamines Screen NEGATIVE NEGATIVE Urine Benzodiazepines Screen NEGATIVE NEGATIVE Urine Cocaine Screen NEGATIVE NEGATIVE Urine Marijuana (THC) Screen NEGATIVE NEGATIVE Current Medications Medications (Trade) Dose Ordered Sig/Joseph Route PRN Reason Start Time Stop Time Status Last Admin Dose Admin Acetaminophen (TYLenol 500MG TAB) 500 mg Q6H PRN PO MILD PAIN (1-3) 08/08/24 12:30 09/07/24 12:29 Amlodipine Besylate (NorvASC 5MG TAB) 5 mg DAILY PO 08/09/24 09:00 08/08/24 19:47 DC Amlodipine Besylate (NorvASC 5MG TAB) 10 mg DAILY PO 08/09/24 09:00 09/08/24 08:59 08/10/24 09:31 10 MG Famotidine (Pepcid 20mg Vial) 20 mg BID IV 08/08/24 21:00 09/07/24 20:59 08/10/24 09:31 20 MG Glipizide (GLUCOtrol 5MG TABLET) 5 mg ACBKFST PO 08/10/24 07:30 08/10/24 14:26 DC 08/10/24 06:49 5 MG Insulin Human Regular (humuLIN R 100 UNIT/ML 3ML) INSULIN SLIDING SCAL... ACHS SQ 08/08/24 16:30 09/07/24 16:29 08/09/24 21:09 3 UNIT Labetalol HCl (TRANdate 20MG SYG) 10 mg Q6H PRN IV for SBP > 180 08/08/24 12:30 09/07/24 12:29 08/08/24 21:01 10 MG Losartan Potassium (CozAAR 50 mg TAB) 50 mg HS PO 08/08/24 21:30 09/07/24 21:29 08/09/24 21:05 50 MG Metformin HCl (glucoPHAGE XR) 1,000 mg BIDMEALS PO 08/09/24 17:00 08/10/24 14:26 DC 08/10/24 09:31 1,000 MG Tobramycin/ Dexamethasone (TobraDEX EYE DROPS) 1 DROP Q4H OD 08/09/24 13:30 09/08/24 13:29 08/10/24 09:32 1 DROP DIAGNOSTICS / RADIOLOGY: [ ] ASSESSMENT: Hypertensive urgency, improving POA Right eye blurry vision Right eye conjunctivitis Uncontrolled diabetes mellitus type 2 last A1C 11.1 Obesity BMI 40.1 PLAN: - Increase losartan to 50mg BID - Start nifedipine 30mg BID - Start hydrochlorothiazide 25mg q24h - in reference to right eye blurry vision. Beam Carrier Hauler Pusher recommended outpatient follow up. Start TobraDex ophthalmic suspension one drop q.4 hours to right eye. - Discontinue metformin and glipizide, contraindicated on inpatient service - Continue sliding scale insulin and hypoglycemia protocol. Disposition: Pending blood pressure control, possible DC in 24-72 hours SHI HANSON MD Aug 10, 2024 14:39
[2024-08-10] MEDS ORDERED: GLUCAGON 1MG KIT 1 MG ML IM PRN (15:00)
[2024-08-10] MEDS ORDERED: DEXTROSE 50%-WATER 50 ML DISP.SYRIN IV PRN (15:00)
[2024-08-10] MEDS ORDERED: PoTASSium chloRIDE 10MEQ/100ML 100 ML IV PRN (15:00)
[2024-08-10] MEDS ORDERED: MAGNESIUM 2GM PREMIX 50ML 50 ML IV PRN (15:00)
[2024-08-10] MEDS: hydroCHLOROthiazide 25 MG TABLET PO SCH (15:21)
[2024-08-10] MEDS: LoSARTan 50 MG TABLET PO SCH (15:22)
[2024-08-11 04:11] VITALS: BP 144/90; PULSE 71; RESP 18; TEMP 98
[2024-08-11 08:00] VITALS: BP 151/86; PULSE 67; RESP 17; TEMP 98.2; O2SAT 97
[2024-08-11] MEDS: nifeDIPine ER 30 MG TAB PO SCH (08:36)
[2024-08-11 09:28] LABS: BASOPHILS # (AUTO) 0.04 K/uL (0.00-0.20); BASOPHILS % (AUTO) 0.5 % (0.0-5.0); EOSINOPHILS # (AUTO) 0.26 K/uL (0.00-0.70); EOSINOPHILS % (AUTO) 3.1 % (0.0-8.0); HEMATOCRIT 40.5 % (42-54); IMMATURE GRANULOCYTE ABSOLUTE 0.01 K/uL (0-1); LYMPHOCYTES # (AUTO) 2.9 K/uL (1.0-4.8); LYMPHOCYTES % (AUTO) 35.1 % (21.0-51.0); MEAN CORPUSCULAR HEMOGLOBIN 27.4 pg (27.0-33.0); MEAN CORPUSCULAR HGB CONC 33.6 g/dL (32.0-36.0); MEAN CORPUSCULAR VOLUME 81.5 fL (79-99); MONOCYTES # (AUTO) 0.9 K/uL (0.1-1.0); MONOCYTES % (AUTO) 10.7 % (3.0-13.0); NEUTROPHILS # (AUTO) 4.2 K/uL (1.8-7.7); NEUTROPHILS % (AUTO) 50.5 % (40.0-77.0); PLATELET COUNT (AUTO) 277 K/uL (130-400); RED BLOOD CELL COUNT(AUTO) 4.97 MIL/uL (4.50-6.20); RED CELL DISTRIBUTION WIDTH 12.9 % (11.0-15.5); WHITE BLOOD COUNT (AUTO) 8.3 K/uL (4.8-10.8)
[2024-08-11 09:33] LABS: CREATININE 1.2 mg/dL (0.5-1.3); POTASSIUM 3.4 mmol/L (3.5-5.1)
[2024-08-11 09:40] LABS: ALBUMIN 3.5 g/dL (3.5-5.0); BILIRUBIN,TOTAL 0.5 mg/dL (0.2-1.0); TOTAL PROTEIN, SERUM 8.6 g/dL (6.0-8.3)
--- NOTE | 2024-08-11 10:43 | PN ---
[facility] PROGRESS NOTE Date of Service: Aug 11, 2024 Time of Service: 10:26 SUBJECTIVE: 08/09 Follow up visit for a 49-year-old male admitted to the hospital for uncontrolled blood pressure, right eye blurry vision. Patient initiated on p.o. Norvasc, p.o. losartan, SBP improving ranging in the 140s 150s. Patient also a type 2 diabetic not currently on any DM medications, A1c is 11.1%. Patient continues to experience for right eye irritation with some hazy vision. He reports itchiness and a.m. matter to the right eye. 08/10 Pt seen at bedside, no acute events overnight. He remains hypertensive, will increase losartan to 50mg BID, start nifedipine 30mg BID and follow up tomorrow. If BP better controlled, will be good candidate for discharge. Pt was started on metformin and glipizide, however this is contraindicated in inpatient as PO diabetes medications are associate with increased incidence of hypoglycemic events, will discontinue at this time and continue with sliding scale. Remainder of his labs and vitals are relatively unremarkable. 08/11/24: Lying in bed at the time of evaluation. Alert and oriented and in no obvious distress. Patient remains hypertensive with a BP of 151/86. Denies any chest pain, shortness of breath or palpitations. States that the blurry vision in the his right eye has almost resolved. Blood glucose this morning was 124. Patient states that he wants to be discharged. Educated the patient about the need to be more compliant with his medications. Discussed the need to modify his diet and loose some weight in order to help with his diabetes and blood pressure. Verbalized understanding. Labs from this morning were relatively unremarkable. Patient's BP is down to 135/91. Plan is to discharge patient today with instructions to follow up with invoice checker as ordered, and PCP for further evaluation and management. Will discharge patient home with Amlodipine 10mg daily and Losartan 50mg BID for hypertension and Glimpiride 4mg daily and Metformin 500mg bid for Diabetes mellitus. Will also make an appointment for a sleep study as out patient. REVIEW OF SYSTEMS Constitutional: No appetite loss, No fevers, chills , No night sweats, No weakness, fatigue Eye: blurred vision right eye No redness, pain or discharge ENT: No hearing loss, ear pain or discharge, No nose bleeds, No sore throat, Neck: No swelling. pain or stiffness Respiratory: No cough, shortness of breath, wheezing Cardiovascular: No chest pain,, palpitations, dyspnea, No edema Gastrointestinal: No abdominal pain, No nausea, vomiting, No diarrhea, const ipation Genitourinary: No painful urination, No blood in urine, No urinary incontinence, No frequency or urgency Musculoskeletal: No joint pain, muscle pain, swelling or stiffness Neurological: No numbness, tingling, No weakness, tremors or seizures Psychiatric: : No depression, No anxiety, No sleep disturbance, No Memory changes Lymphatic: No easy bruising, No bleeding tendencies , No swollen lymph nodes PHYSICAL EXAM GENERAL APPEARANCE: The patient is awake, alert, and oriented, in no acute cardiopulmonary distress. NEUROLOGICAL: Cranial nerves II-XII grossly intact. Motor is 5/5 in bilateral upper and lower extremities proximal to distal. No sensory deficits. HEENT: Face is symmetric. Pupils are equal and reactive. Extraocular movements are intact. He has global conjunctival redness in the right eye. Eye movement is intact. Visual field is intact in the left eye. He does state that his right eye central and peripheral vision is intact however is hazy NECK: Supple. No JVD. No thyromegaly. No submental, submandibular, pre- /postauricular, occipital or supraclavicular lymphadenopathy. CHEST: Normal chest expansion. No Telemetry. LUNGS: Absence of any rales, rhonchi or any wheezing. CARDIOVASCULAR: Regular. S1 and S2 normal. No appreciable rubs, murmurs or gallops. ABDOMEN: Soft, nontender, and nondistended. There is no rebound, voluntary guarding, or rigidity. : Deferred. No Fenton. EXTREMITIES: Non-edematous and not cyanotic. No clubbing. Good capillary refill. SKIN: No skin breakdown. Vital Signs (last 8hr) Date Time Temp Pulse Resp B/P (MAP) Pulse Ox O2 Delivery O2 Flow Rate FiO2 08/11/24 08:00 98.2 67 17 151/86 97 Room Air 08/11/24 04:11 98.1 71 18 144/90 98 Room Air 21 LABS: Laboratory: Test 08/11/24 09:13 08/11/24 05:15 Range/Units White Blood Count 8.3 4.8-10.8 K/uL Red Blood Count 4.97 4.50-6.20 MIL/uL Hemoglobin 13.6 L 14.0-18.0 g/dL Hematocrit 40.5 L 42-54 % Mean Corpuscular Volume 81.5 79-99 fL Mean Corpuscular Hemoglobin 27.4 27.0-33.0 pg Mean Corpuscular Hemoglobin Concent 33.6 32.0-36.0 g/dL Red Cell Distribution Width 12.9 11.0-15.5 % Platelet Count 277 130-400 K/uL Mean Platelet Volume 10.6 H 7.5-10.5 fL Immature Granulocyte % (Auto) 0.1 0-1 % Neutrophils (%) (Auto) 50.5 40.0-77.0 % Lymphocytes (%) (Auto) 35.1 21.0-51.0 % Monocytes (%) (Auto) 10.7 3.0-13.0 % Eosinophils (%) (Auto) 3.1 0.0-8.0 % Basophils (%) (Auto) 0.5 0.0-5.0 % Neutrophils # (Auto) 4.2 1.8-7.7 K/uL Lymphocytes # (Auto) 2.9 1.0-4.8 K/uL Monocytes # (Auto) 0.9 0.1-1.0 K/uL Eosinophils # (Auto) 0.26 0.00-0.70 K/uL Basophils # (Auto) 0.04 0.00-0.20 K/uL Absolute Immature Granulocyte (auto 0.01 0-1 K/uL Nucleated Red Blood Cells 0.0 0.0-0.19 % Sodium Level 136 136-145 mmol/L Potassium Level 3.4 L 3.5-5.1 mmol/L Chloride Level 99 L 101-111 mmol/L Carbon Dioxide Level 30 21-32 mmol/L Blood Urea Nitrogen 16 7-18 mg/dL Creatinine 1.2 0.5-1.3 mg/dL Glomerular Filtration Rate Calc 73 >90 mL/min Random Glucose 120 H 70-105 mg/dL Total Calcium 9.0 8.5-10.1 mg/dL Total Bilirubin 0.5 0.2-1.0 mg/dL Aspartate Amino Transf (AST/SGOT) 22 10-37 U/L Alanine Aminotransferase (ALT/SGPT) 32 12-78 U/L Alkaline Phosphatase 84 50-136 U/L Total Protein 8.6 H 6.0-8.3 g/dL Albumin 3.5 3.5-5.0 g/dL Whole Blood Glucose 177 H 70-110 MG/DL Current Medications Medications (Trade) Dose Ordered Sig/Joseph Route PRN Reason Start Time Stop Time Status Last Admin Dose Admin Acetaminophen (TYLenol 500MG TAB) 500 mg Q6H PRN PO MILD PAIN (1-3) 08/08/24 12:30 09/07/24 12:29 Amlodipine Besylate (NorvASC 5MG TAB) 5 mg DAILY PO 08/09/24 09:00 08/08/24 19:47 DC Amlodipine Besylate (NorvASC 5MG TAB) 10 mg DAILY PO 08/09/24 09:00 08/10/24 14:33 DC 08/10/24 09:31 10 MG Dextrose (D50w) 50 ml AD PRN IV HYPOGLYCEMIA PROTOCOL 08/10/24 15:00 09/09/24 14:59 Famotidine (Pepcid 20mg Vial) 20 mg BID IV 08/08/24 21:00 09/07/24 20:59 08/11/24 08:35 20 MG Glipizide (GLUCOtrol 5MG TABLET) 5 mg ACBKFST PO 08/10/24 07:30 08/10/24 14:26 DC 08/10/24 06:49 5 MG Glucagon (Glucagon 1mg Kit) 1 mg AD PRN IM HYPOGLYCEMIA PROTOCOL 08/10/24 15:00 09/09/24 14:59 Hydrochlorothiazide (hydroCHLOROthiazide 25MG) 12.5 mg DAILY PO 08/10/24 15:00 09/09/24 14:59 08/11/24 08:36 12.5 MG Insulin Human Regular (humuLIN R 100 UNIT/ML 3ML) INSULIN SLIDING SCAL... ACHS SQ 08/08/24 16:30 09/07/24 16:29 08/11/24 05:51 2 UNIT Labetalol HCl (TRANdate 20MG SYG) 10 mg Q6H PRN IV for SBP > 180 08/08/24 12:30 09/07/24 12:29 08/08/24 21:01 10 MG Losartan Potassium (CozAAR 50 mg TAB) 50 mg BID PO 08/10/24 14:30 09/07/24 21:29 08/11/24 08:37 50 MG Losartan Potassium (CozAAR 50 mg TAB) 50 mg HS PO 08/08/24 21:30 08/10/24 14:29 DC 08/09/24 21:05 50 MG Magnesium Sulfate 50 ml @ 0 mls/hr PROTOCOL PRN IV MAGNESIUM PROTOCOL 08/10/24 15:00 09/09/24 14:59 Metformin HCl (glucoPHAGE XR) 1,000 mg BIDMEALS PO 08/09/24 17:00 08/10/24 14:26 DC 08/10/24 09:31 1,000 MG Nifedipine (adALAT 30MG) 30 mg BID PO 08/10/24 14:30 08/10/24 14:35 DC Nifedipine (adALAT 30MG) 30 mg BID PO 08/11/24 09:00 09/10/24 08:59 08/11/24 08:36 30 MG Potassium Chloride 100 ml @ 100 mls/hr AD PRN IV POTASSIUM PROTOCOL 08/10/24 15:00 09/09/24 14:59 Tobramycin/ Dexamethasone (TobraDEX EYE DROPS) 1 DROP Q4H OD 08/09/24 13:30 09/08/24 13:29 08/11/24 08:35 1 DROP DIAGNOSTICS / RADIOLOGY: PATIENT: NORA MONTELONGO MR#: [id number] : 1975 SEX: M AGE: 49 LOCATION: [facility] ORDER 0853 STATUS: REG REPORT#: [id number] SERVICE 0852 REASON: Vision loss with headache ORDERING PHYSICIAN: ORLIN WESTBROOK MD PROCEDURE: HEAD WO - CT HEAD/BRAIN W/O CONTRAST CT HEAD/BRAIN W/O CONTRAST HISTORY: Headaches COMPARISON: None TECHNIQUE: Multiple sequential axial images of the head were obtained from the base of the skull through vertex. Patient was not given contrast through intravenous route. FINDINGS: The ventricles and extraventricular CSF spaces are nondilated for patient's age. There is no midline shift, mass effect or herniation. No acute intracranial bleed is seen. Visualized portion of the paranasal sinuses are grossly within normal limits. IMPRESSION: 1. No acute intracranial bleed is seen. CT was performed with one or more following dose reduction techniques: automated exposure control, adjustment of the mA and kv according to patient's size, or use of a iterative reconstruction technique. DICTATED BY: ZEUS CHINCHILLA MD DATE: 08/08/24926 ELECTRONICALLY SIGNED BY: ZEUS CHINCHILLA MD DATE: 08/08/24930 ASSESSMENT: Hypertensive urgency, improving POA Right eye blurry vision Right eye conjunctivitis Uncontrolled diabetes mellitus type 2 last A1C 11.1 Obesity BMI 40.1 Hypokalemia PLAN: - Plan is to discharge patient today with instructions to follow up with invoice checker at [facility] as scheduled and PCP for further evaluation and management. -Will discharge patient with Amlodipine 10mg daily and Losartan 50mg BID for hypertension. -Will also make an appointment for a sleep study as out patient. -Will also discharge on Metformin 500mg bid and Glimpiride 4mg daily gor Diabetes - In reference to right eye blurry vision. Payroll Manager recommended outpatient follow up. -Start TobraDex ophthalmic suspension one drop q.4 hours to right eye. Disposition: Pending blood pressure control, possible DC in 24-72 hours ATTESTATION BY PHYSICIAN I have seen and examined the patient. I reviewed the documentation, medical decision making, and treatment plan as noted by the mid-level provider above. I agree with the findings and plan of care. Hugh Fulton MD OBENDY Parham MD Aug 11, 2024 10:42
[2024-08-11 12:00] VITALS: BP 135/91; PULSE 72; RESP 19; TEMP 98
[2024-08-11] MEDS: PoTASSium chloRIDE 10MEQ SR 10 MEQ/TAB TAB.SR.24H PO ONE (12:21)
[2024-08-11] MEDS ORDERED: GLIM4TAB36 PO (14:10)
[2024-08-11] MEDS ORDERED: LOSA50TA64 PO (14:10)
[2024-08-11] MEDS ORDERED: METF-444 PO (14:10)
[2024-08-11] MEDS ORDERED: AMLO-258 PO (14:10)
--- NOTE | 2024-08-11 14:16 | DS ---
Discharge Summary Hospital Course Summary: *Name:Carlos Castro *Date of : 71 *Admission Date:08/08/24 *Discharge Date: 08/11/24 Attending Physician: Dr Hugh Garcia Admitting Diagnosis:Hypertensive emergency, Right eye blurry vision Discharge Diagnosis: Hypertension, Diabetes mellitus type 2 Course in Hospital: Patient is a 49 yr old male with no significant past medical history who presented to the emergency room with a 3 day history of elevated BP and blurry vision to the right eye. ED labs were unremarkable and CT head was negative for any acute findings. He was started on Losartan 50mg bid, Nifedipine 30mg bid and Hydrochlorothiazide 12.5mg daily . Over the course of his hospitalization, his symptoms . have improved with blood pressure systolic in the 130's.. Plan is to send the patient home today with Losartan 50mg bid, Amlodipine 10mg daily, Metformin 500mg bid and Glimpiride 4mg daily. With instructions to follow up with PCP in 2-3 days and follow up with a scheduled appointment with [facility] tomorrow. Will also make an appointment for a sleep study as out patient. Procedures performed: CBC, CMP, EKG ,Head CT , Echo Medications on Discharge: Metformin 500mg BID, Glimpiride 4mg daily, Amlodipine 10mg daily and Losartan 50ng BID Discharge Instructions: *Follow up for scheduled appointment tomorrow at [facility] for further evaluation and management. *Follow up with your primary care physician in 2 - 3 days after discharge. *Continue all medications as prescribed. Do not discontinue or change dosages without consulting your PCP. *Gradually resume normal activities as tolerated. *Continue a balanced diet . Reduce salt intake to help manage BP. *Seek immediate medical attention if you experience chest pain, SOB or severe headache. *Smoking cessation is strongly advised. Resources for quitting smoking are available upon request. Discharged to: Home Condition on Discharge: Stable Superintendent [employer] Schools(s): Ophthalmology Procedure(s): PATIENT: NORA MONTELONGO MR#: [id number] : 1975 SEX: M AGE: 49 LOCATION: [facility] ORDER 1218 STATUS: ADM IN REPORT#: [id number] SERVICE 1210 REASON: uncontrolled hypertension ORDERING PHYSICIAN: ALVIN WINTERS MD PROCEDURE: ECHO CMP - ECHO 2-D COMPLETE APPROVED REPORT EXAM: Two-dimensional and M-mode echocardiogram with Doppler and color Doppler. Study Details: HTN INDICATION ICD: uncontrolled hypertension 2D Dimensions RVDd 3.9 cm LVEF(%) 62.3 (>50%) LVED Vol(simp.) 144.0 mL IVSd 1.1 (0.7-1.1cm) FS(%) 34 % LVES Vol(simp.) 49.6 mL LVDd 5.3 (3.8-5.6cm) LA (2D) 4.8 (1.6-4.0cm) LVEF(%, simp.) 66 % PWd 1.1 (0.7-1.1cm) Ao Root(2D) 3.5 (2.0-3.7cm) LA ESV INDEX (4CH) 23.20 mL/m2 IVSs 1.4 cm LVOT diam 2.0 (1.8-2.4cm) LA ESV INDEX (2CH) 22.80 mL/m2 LVDs 3.5 (2.5-4.0cm) LA ESV INDEX (BP) 23.90 mL/m2 PWs 1.4 cm Deformation Strain Apical 4 18.0 % Apical 2 15.0 % Apical 3 17.0 % Global Strain 17.0 % M-Mode Dimensions EPSS 1.4 cm LA (MM) 4.8 (1.6-4.0cm) Ao Root(MM) 3.7 (2.0-3.7cm) Aortic Valve AoV VTI 0.3 m Ao Mean GR 4.0 mmHg LVOT VTI 0.23 m SARAH (VMAX) 2.4 cm2 SARAH (VTI) 2.4 cm2 Mitral Valve MV E Vmax 74.7 cm/s DECEL Time 268 ms MV A Vmax 108.7 cm/s P 1/2 T 78 ms E/A ratio 0.7 MVA (PHT) 2.8 cm2 TDI E/E' Medial 22.6 E/E' Lateral 18.2 Medial E' Peak V 3.30 cm/s Lateral E' Peak V 4.10 cm/s Pulmonary Valve PV VTI 0.22 m PV Mean GR 3 mmHg Left Ventricle The left ventricle is normal size. There is normal left ventricular wall thickness. LVEF is 60-65%. Stage I diastolic dysfunction. Right Ventricle The right ventricle is normal size. The right ventricular systolic function is n ormal. Atria The left atrium is mildly dilated. The right atrium size is normal. Aortic Valve The aortic valve is normal in structure. Aortic valve is trileaflet. Trivial aortic regurgitation. There is no aortic valvular stenosis. Mitral Valve The mitral valve is normal in structure. There is no evidence of significant mitral regurgitation. There is no mitral valve stenosis. Tricuspid Valve The tricuspid valve is normal in structure. There is no tricuspid valve regurgitation noted. Pulmonic Valve The pulmonary valve is normal in structure. There is no pulmonic valvular regurgitation. Great Vessels The aortic root is normal in size. The ascending aorta is normal in size. The IVC is normal in size and collapses >50% with inspiration. Pericardium No pericardial effusion. Conclusion The left ventricle is normal size. LVEF is 60-65%. Stage I diastolic dysfunction. The right ventricle is normal size. The right ventricular systolic function is normal. The left atrium is mildly dilated. The right atrium size is normal. No valvular pathology. No pericardial effusion. DICTATED BY: HELEN CORDERO MD DATE: 08/09/24 1519 ELECTRONICALLY SIGNED BY: HELEN CORDERO MD DATE: 08/09/24 180 PATIENT: NORA MONTELONGO MR#: [id number] : 1975 SEX: M AGE: 49 LOCATION: ED ORDER 2 STATUS: REG REPORT#: [id number] SERVICE 08 REASON: Vision loss with headache ORDERING PHYSICIAN: ORLIN WESTBROOK MD PROCEDURE: HEAD WO - CT HEAD/BRAIN W/O CONTRAST CT HEAD/BRAIN W/O CONTRAST HISTORY: Headaches COMPARISON: None TECHNIQUE: Multiple sequential axial images of the head were obtained from the base of the skull through vertex. Patient was not given contrast through intravenous route. FINDINGS: The ventricles and extraventricular CSF spaces are nondilated for patient's age. There is no midline shift, mass effect or herniation. No acute intracranial bleed is seen. Visualized portion of the paranasal sinuses are grossly within normal limits. IMPRESSION: 1. No acute intracranial bleed is seen. CT was performed with one or more following dose reduction techniques: automated exposure control, adjustment of the mA and kv according to patient's size, or use of a iterative reconstruction technique. DICTATED BY: ZEUS CHINCHILLA MD DATE: 08/08/24926 ELECTRONICALLY SIGNED BY: ZEUS CHINCHILLA MD DATE: 08/08/24930 Assessment/Plan: ASSESSMENT: Hypertensive urgency, improving POA Right eye blurry vision Right eye conjunctivitis Uncontrolled diabetes mellitus type 2 last A1C 11.1 Obesity BMI 40.1 Hypokalemia PLAN: - Plan is to discharge patient today with instructions to follow up with risk manager at [facility] as scheduled and PCP for further evaluation and management. -Will discharge patient with Amlodipine 10mg daily and Losartan 50mg BID for hypertension. -Will also discharge on Metformin 500mg bid and Glimpiride 4mg daily gor Diabetes - In reference to right eye blurry vision. Retail Planner recommended outpatient follow up. -Start TobraDex ophthalmic suspension one drop q.4 hours to right eye. Disposition: Pending blood pressure control, possible DC in 24-72 hours Discharge Instructions: Discharge Instructions: *Follow up tomorrow for a scheduled appointment at [facility] *Follow up with your primary care physician in 2 - 3 days after discharge. *Continue all medications as prescribed. Do not discontinue or change dosages without consulting your PCP. *Gradually resume normal activities as tolerated. *Continue a balanced diet . Reduce salt intake to help manage BP. *Seek immediate medical attention if you experience chest pain, SOB or severe headache. *Smoking cessation is strongly advised. Resources for quitting smoking are available upon request. Time spent arranging discharge: 1-30 minutes ATTESTATION BY PHYSICIAN I have seen and examined the patient. I reviewed the documentation, medical decision making, and treatment plan as noted by the mid-level provider above. I agree with the findings and plan of care. Hugh Fulton MD OBI,ENDY Dial MD Aug 11, 2024 14:16
== END 2024-08-11 15:50 | disposition home or self-care (01) | DRG 305 ==
LOC: EDH 08:30 → EDHIP 12:10 → 4BH 22:46
PROVIDERS: ADMIT Internal Medicine; ATTEND Internal Medicine
DX: I16.0 Hypertensive urgency (principal); H53.8 Other visual disturbances; I10 Essential (primary) hypertension; H54.7 Unspecified visual loss; H10.89 Other conjunctivitis; E11.65 Type 2 diabetes mellitus with hyperglycemia; E87.6 Hypokalemia; E66.9 Obesity, unspecified; Z79.899 Other long term (current) drug therapy; Z79.84 Long term (current) use of oral hypoglycemic drugs; Z68.39 Body mass index [BMI] 39.0-39.9, adult
CPT/HCPCS: 36415; 70450; 80048; 80053; 80305; 81001; 82948; 83036; 84145; 84443; 84484; 85025; 85610; 85730; 86140; 93005; 93306; 93356; 96374; 96375; 96376; G0378; J0360; J1815; J3490